=== PATIENT | female | born 1950 | race Caucasian/White ===

== ENCOUNTER 2021-08-08 08:42 | Emergency (ER) | payer MEDICARE, MEDICAID, SELFPAY ==
[2021-08-08 09:13] VITALS: BMI 23.9
--- NOTE | 2021-08-08 09:29 | ED_ITS ---
HPI - CPR General Chief Complaint: Cardiac Arrest/CPR Stated Complaint: cardiac arrest Time Seen by Provider: 08/08/21 09:14 Source: family ( and son) and EMS Mode of arrival: EMS Limitations: other (Cardiac arrest) History of Present Illness HPI narrative: 71-year-old female came in after was found in cardiac arrest. History was obtained from and son, patient is a smoker went outside to smoke shortly found by her on the floor, CPR was started by bystander shortly, on EMS arrival patient was in asystole and PEA was given 5 times of epinephrine 1 mg each CPR was in process, patient was intubated in the field them patient was transported to the hospital. On arrival to the hospital CPR was not processes, patient was intubated, remained pulseless with PE a, patient was given 1 mg of epinephrine x2 and 1 amp of bicarb, patient continued to be in PEA. Patient showed no evidence of trauma, was pronounced at 09:10. and 2 sons were notified, in October he also was notified and the case was declined by Jennifer Nelson . Review of Systems Review of Systems: Yes Unobtainable due to mental condition (Cardiac arrest) [facility] Social History Social History Advance Directives: Yes Advance Directives Information Provided: Yes Advance Directives on File: No Physical Exam Vital Signs: Vital Signs: BMI result Body Mass Index 23.9 Patient is unresponsive, intubated, Christiano machine is inserted on the chest for CPR. HEENT exam: Pupil is 4 mm nonreactive bilaterally, had shown trauma, intubated. Chest exam: Intubated with no spontaneous breathing, no sign of trauma on the chest. Heart exam: Asystole, no cardiac activity, no pulse in bilateral femoral and bilateral carotid arteries. Abdominal exam: Abdomen is soft, no sign of trauma or bleeding. Extremities exam: Old surgical scar on right hip likely of right hip replacement. Neuro exam: Unresponsive, GCS of 3, pupil 4 mm unreactive. No reflexes. Skin: No trauma, pale, no mottling. Course Course Course Narrative: 71-year-old female came in in cardiac arrest, ET tube was checked in the ED in good position, CPR continued in the ED, received 1 mg of epinephrine x2 and 1 amp of bicarb, declared at 09:10. Decline by TRAM Vang was case [id number]. No blood workup or radiographic study were obtained. Discharge Plan Discharge Clinical Impression: Cardiac arrest, Sudden cardiac Patient Disposition: Date/Time: 08/08/21 09:10
--- NOTE | 2021-08-08 09:43 | PC.NURSE ---
[facility] in [place]
--- NOTE | 2021-08-08 09:45 | PC.NURSE ---
ME declined case
--- NOTE | 2021-08-08 10:09 | PC.NURSE ---
call placed to [facility]
--- NOTE | 2021-08-08 10:15 | PC.NURSE ---
gautam CHOWDARY accepted #[id number]
[2021-08-11 11:39] LABS: Glucose, Whole Blood 238 mg/dL (60-115)
== END 2021-08-08 11:12 | disposition expired ==
PROVIDERS: Emergency Provider Emergency Medicine; PCP Internal Medicine
DX: I46.9 Cardiac arrest, cause unspecified (principal); F17.200 Nicotine dependence, unspecified, uncomplicated
CPT/HCPCS: 82947; 99283; 99284; J0171